=== PATIENT | female | born 1950 | race Caucasian/White ===

== ENCOUNTER 2023-03-06 10:20 | Inpatient (IN) | payer OTHER ==
[~2023-03-06] VITALS: Ht 154.9 cm; Wt 49.5 kg
[~2023-03-06 10:20] MED LIST: BUDE1AER6 IN; LISI-275 PO; PANT40TA2 PO
[2023-03-06] MEDS ORDERED: MORPHINE SULFATE 4 MG/ML SYR/VIAL IV ONE (10:30)
[2023-03-06] MEDS ORDERED: SODIUM CHLORIDE 0.9% 1,000 ML IVB ONE (10:30)
[2023-03-06] MEDS ORDERED: ONDANSETRON HCL 4 MG/2 ML VIAL IV ONE (10:30)
[2023-03-06] MEDS ORDERED: KETOROLAC TROMETH 30 MG/ML 1ML VIAL IV ONE (10:30)
[2023-03-06 11:39] LABS: Eosinophils # (auto) 0 10 ^3/uL (0-0.8); Hemoglobin 12.7 g/dL (12.2-16.2); Lymphocytes # (auto) 0.3 10 ^3/uL (0.4-5.4); White Blood Cell 10.9 10^3/uL (4.4-10.8)
[2023-03-06 11:40] LABS: Basophils # (auto) 0.1 10 ^3/uL (0-0.2); Basophils % (auto) 0.6 % (0.0-2.0); Hematocrit 37.7 % (36.0-46.0); Lymphocytes % (auto) 2.6 % (10.0-50.0); Mean Corpuscular Hemoglobin 33.9 pg (28.0-32.0); Mean Corpuscular Hgb Conc. 33.7 g/dL (32.0-36.0); Mean Corpuscular Volume 100.5 fL (80.0-100.0); Monocytes # (auto) 0.7 10 ^3/uL (0-1.3); Monocytes % (auto) 6.2 % (0.0-12.0); Neutrophils # (auto) 9.9 10 ^3/uL (1.6-8.6); Neutrophils % (auto) 90.6 % (37.0-80.0); Red Blood Cells 3.75 10^6/uL (4.0-5.20); Red Cell Distribution Width 13.3 % (11.8-14.3)
[2023-03-06 11:57] LABS: Albumin 3.1 g/dL (3.4-5.0); Calcium 9.1 mg/dL (8.5-10.1); Potassium 3.5 mmol/L (3.5-5.1)
[2023-03-06 12:01] LABS: Bilirubin, Total 0.5 mg/dL (0.2-1.0); Total Protein 6.8 g/dL (6.4-8.2)
[2023-03-06 12:04] LABS: INR 0.99 (0.9-1.15); Partial Thromboplastin Time 28.5 sec (24.6-33.4)
[2023-03-06] MEDS ORDERED: metroNIDAZOLE 500MG/100ML 100 ML IV ONE (12:45)
[2023-03-06] MEDS ORDERED: levoFLOXacin 500MG 100 ML IV ONE (12:45)
[2023-03-06] MEDS ORDERED: HYDROcodone-ACET 5/325MG TAB PO PRN (14:15)
[2023-03-06] MEDS ORDERED: MORPHINE SULFATE INJ 2 MG/ml SYRG IV PRN (14:15)
[2023-03-06] MEDS ORDERED: NITROGLYCERIN 0.4 MG SL TAB SL PRN (14:15)
[2023-03-06] MEDS ORDERED: LOPERAMIDE HCL 2 MG CAP/TAB PO ONE (14:30)
[2023-03-06] MEDS: metroNIDAZOLE 500MG/100ML 100 ML IV SCH (22:00)
[2023-03-06] MEDS: PROMETHAZINE HCL 25 MG/ML 1ML IV PRN (22:40)
[2023-03-06] MEDS: DICYCLOMINE HCL 10 MG CAP PO SCH (22:40)
[2023-03-06] MEDS: SOD CHL 0.9%/ KCL 20MEQ 1,000 ML IV SCH (22:51)
[2023-03-06] MEDS: MORPHINE SULFATE INJ 2 MG/ml SYRG IV PRN (23:15)
[2023-03-07 07:03] LABS: Potassium 3.8 mmol/L (3.5-5.1)
[2023-03-07] MEDS: DICYCLOMINE HCL 10 MG CAP PO SCH ×4 (07:06→22:00)
[2023-03-07] MEDS: metroNIDAZOLE 500MG/100ML 100 ML IV SCH ×3 (07:06→22:00)
[2023-03-07 07:08] LABS: BUN/Creatinine Ratio 26.4 (10.0-20.0); Calcium 8.5 mg/dL (8.5-10.1)
[2023-03-07 07:09] LABS: Basophils # (auto) 0 10 ^3/uL (0-0.2); Eosinophils # (auto) 0 10 ^3/uL (0-0.8); Eosinophils % (auto) 0.2 % (0.0-7.0); Lymphocytes # (auto) 0.4 10 ^3/uL (0.4-5.4); Mean Corpuscular Hgb Conc. 33.3 g/dL (32.0-36.0); Monocytes # (auto) 0.6 10 ^3/uL (0-1.3); Red Blood Cells 3.23 10^6/uL (4.0-5.20)
[2023-03-07 07:14] LABS: Basophils % (auto) 0.3 % (0.0-2.0); Hematocrit 33.2 % (36.0-46.0); Mean Corpuscular Hemoglobin 34.1 pg (28.0-32.0); Mean Corpuscular Volume 102.6 fL (80.0-100.0); Monocytes % (auto) 11.5 % (0.0-12.0); Neutrophils # (auto) 4.4 10 ^3/uL (1.6-8.6); Nucleated Red Blood Cells % 0.1 %; Red Cell Distribution Width 13.7 % (11.8-14.3); White Blood Cell 5.5 10^3/uL (4.4-10.8)
[2023-03-07] MEDS: SOD CHL 0.9%/ KCL 20MEQ 1,000 ML IV SCH ×2 (07:40→18:56)
[2023-03-07] MEDS: FAMOTIDINE (10MG/ML) 2ML VL IV SCH (09:29)
[2023-03-07] MEDS: ENOXAPARIN SOD 40 MG/0.4 ML SYRINGE SC SCH ×2 (09:30→09:40)
[2023-03-07] MEDS: PROMETHAZINE HCL 25 MG/ML 1ML IV PRN (10:14)
[2023-03-07 11:05] VITALS: BP 132/72
[2023-03-07 11:06] VITALS: BP 132/73
[2023-03-07] MEDS ORDERED: LEVO50TA7 PO (11:22)
[2023-03-07 17:14] VITALS: BP 130/73
[2023-03-07] MEDS: VANCOMYCIN HCL 125MG/5ML ORAL SOL PO SCH ×2 (18:55→22:00)
[2023-03-07 23:22] VITALS: BP 130/70
[2023-03-08] MEDS: PROMETHAZINE HCL 25 MG/ML 1ML IV PRN ×2 (01:36→21:01)
[2023-03-08] MEDS: MORPHINE SULFATE INJ 2 MG/ml SYRG IV PRN (01:37)
[2023-03-08 04:55] VITALS: BP 140/74
[2023-03-08] MEDS: SOD CHL 0.9%/ KCL 20MEQ 1,000 ML IV SCH ×2 (06:15→19:35)
[2023-03-08 06:27] LABS: Basophils # (auto) 0 10 ^3/uL (0-0.2); Basophils % (auto) 0.6 % (0.0-2.0); Eosinophils # (auto) 0 10 ^3/uL (0-0.8); Eosinophils % (auto) 0.8 % (0.0-7.0); Hematocrit 30.7 % (36.0-46.0); Hemoglobin 10.5 g/dL (12.2-16.2); Lymphocytes # (auto) 0.7 10 ^3/uL (0.4-5.4); Lymphocytes % (auto) 15.8 % (10.0-50.0); Mean Corpuscular Hgb Conc. 34.2 g/dL (32.0-36.0); Mean Corpuscular Volume 99.3 fL (80.0-100.0); Monocytes # (auto) 0.6 10 ^3/uL (0-1.3); Neutrophils # (auto) 2.9 10 ^3/uL (1.6-8.6); Neutrophils % (auto) 68.8 % (37.0-80.0); Nucleated Red Blood Cells % 0.1 %; Red Blood Cells 3.09 10^6/uL (4.0-5.20); Red Cell Distribution Width 13.1 % (11.8-14.3); White Blood Cell 4.2 10^3/uL (4.4-10.8)
[2023-03-08] MEDS: metroNIDAZOLE 500MG/100ML 100 ML IV SCH ×3 (06:27→22:10)
[2023-03-08] MEDS: DICYCLOMINE HCL 10 MG CAP PO SCH ×4 (07:00→22:10)
[2023-03-08 07:10] LABS: BUN/Creatinine Ratio 21.4 (10.0-20.0); Calcium 8.5 mg/dL (8.5-10.1)
[2023-03-08] MEDS: VANCOMYCIN HCL 125MG/5ML ORAL SOL PO SCH ×4 (07:35→22:10)
[2023-03-08 08:30] VITALS: BP 142/85
[2023-03-08 08:56] VITALS: BP 142/85
[2023-03-08] MEDS: FAMOTIDINE (10MG/ML) 2ML VL IV SCH (09:00)
[2023-03-08] MEDS: ENOXAPARIN SOD 40 MG/0.4 ML SYRINGE SC SCH (09:00)
[2023-03-08 10:09] LABS: Urine Bacteria NONE SEEN /hpf (None Seen); Urine Blood Negative /uL (Negative); Urine Specific Gravity 1.012 (1.001-1.035); Urine WBC 1 /hpf (0 - 5)
[2023-03-08 12:58] VITALS: BP 144/71
[2023-03-08 16:00] VITALS: BP 141/73
[2023-03-08] MEDS ORDERED: POTASSIUM CHLORIDE 20 MEQ, LIDOCAINE 1% (LOCAL ANESTH.) 2 ML in SODIUM CHL 0.9% 100 ML IV ONE (19:00)
[2023-03-08] MEDS ORDERED: POTASSIUM EFFERVESENT TAB 25 MEQ PO ONE (19:00)
[2023-03-08 22:00] VITALS: BP 133/80
[2023-03-09] MEDS: PROMETHAZINE HCL 25 MG/ML 1ML IV PRN (02:09)
[2023-03-09 04:41] VITALS: BP 137/73
[2023-03-09 05:05] LABS: Magnesium 1.6 mg/dL (1.6-2.6); Potassium 3.4 mmol/L (3.5-5.1)
[2023-03-09 05:08] LABS: BUN/Creatinine Ratio 11.6 (10.0-20.0)
[2023-03-09] MEDS: metroNIDAZOLE 500MG/100ML 100 ML IV SCH ×2 (05:44→15:10)
[2023-03-09] MEDS: VANCOMYCIN HCL 125MG/5ML ORAL SOL PO SCH ×2 (05:45→12:00)
[2023-03-09] MEDS: DICYCLOMINE HCL 10 MG CAP PO SCH ×2 (05:45→15:10)
[2023-03-09 08:00] VITALS: BP_SYST 133; BP_SYST 142; BP_DIAS 74; BP_DIAS 85
[2023-03-09] MEDS: ENOXAPARIN SOD 40 MG/0.4 ML SYRINGE SC SCH ×3 (09:20→10:00)
[2023-03-09] MEDS: FAMOTIDINE (10MG/ML) 2ML VL IV SCH (09:21)
[2023-03-09] MEDS: SOD CHL 0.9%/ KCL 20MEQ 1,000 ML IV SCH (09:22)
[2023-03-09 12:00] VITALS: BP 140/80
[2023-03-09] MEDS ORDERED: VANC125C3 PO (12:45)
[2023-03-09] MEDS ORDERED: PROM25TA5 PO (12:45)
[2023-03-09 16:00] VITALS: BP 130/83
[2023-03-09] MEDS ORDERED: NAS17NSL (17:57)
== END 2023-03-09 17:20 | disposition home or self-care (01) | DRG 373 ==
LOC: ER 10:20 → EDBD 10:20 → OVERFLOW 14:18 → CENTRAL 03-07 15:12
PROVIDERS: ADMIT Hospitalist; ATTEND Hospitalist
DX: A04.72 Enterocolitis due to Clostridium difficile, not specified as recurrent (principal); I10 Essential (primary) hypertension; Z96.659 Presence of unspecified artificial knee joint; Z88.1 Allergy status to other antibiotic agents; Z79.899 Other long term (current) drug therapy; Z82.49 Family history of ischemic heart disease and other diseases of the circulatory system
CPT/HCPCS: 36415; 71045; 74176; 80048; 80053; 81001; 83605; 83690; 83735; 84484; 85025; 85048; 85610; 85730; 87045; 87427; 87493; 93005; 97110; 97116; 97163; G0378; J1956; J2001; J2405; J3490